=== PATIENT | male | born 1960 | race Caucasian/White ===

== ENCOUNTER 2024-01-27 01:24 | Emergency (ER) | payer OTHER ==
[2024-01-27 01:30] VITALS: BP 119/76; PULSE 62; RESP 18; TEMP 101.5; BMI 25.8
[2024-01-27] MEDS ORDERED: ACETAMINOPHEN 500 MG TABLET (FP) ONE (02:11)
[2024-01-27] MEDS: ACETAMINOPHEN 500 MG TABLET (FP) PO ONE (02:21)
[2024-01-27 12:30] LABS: HIV INTERPRETATION NEGATIVE (NEGATIVE)
== END 2024-01-27 03:25 | disposition home or self-care (01) ==
LOC: JER 01:24
DX: U07.1 COVID-19 (principal); R09.81 Nasal congestion; R05.9 Cough, unspecified; R50.9 Fever, unspecified
CPT/HCPCS: 0241U-QW; 36415; 86803; 87389; 99283-25

== ENCOUNTER 2024-04-15 05:37 | Emergency (ER) | payer OTHER ==
[2024-04-15 05:43] VITALS: BP 124/80; PULSE 97; RESP 20; TEMP 98.2; BMI 26.3
[2024-04-15] MEDS ORDERED: ONDANSETRON 4 MG/2 ML VIAL ONE (05:54)
[2024-04-15] MEDS ORDERED: FAMOTIDINE 20 MG/50 ML IVPB 20 MG/50 ML MG IVPB ONE (05:54)
[2024-04-15] MEDS ORDERED: ACETAMINOPHEN INJECTION 100 ML ONE (05:54)
[2024-04-15] MEDS: SODIUM CHLORIDE 0.9% 500 ML INFUS.BAG IV ONE (06:00)
[2024-04-15] MEDS: ACETAMINOPHEN 1000 MG/100 ML BAG IVPB ONE (06:01)
[2024-04-15] MEDS: ONDANSETRON 4 MG/2 ML VIAL IVPUSH ONE (06:01)
[2024-04-15] MEDS: FAMOTIDINE 20 MG/50 ML IVPB 20 MG/50 ML MG IVPB ONE (06:02)
[2024-04-15 06:33] LABS: HEMOGLOBIN 16.3 GM/dL (11.7-16.9); MCH 30.6 pg (25.7-33.7); MCHC 32.7 g/dl (32.0-35.9); MEAN CELL VOLUME 93.7 fl (80-96); MEAN PLT VOLUME 9.1 fl (7.5-11.1); PLATELET COUNT 162 10^3/uL (134-434); RBC 5.34 M/mm3 (4.00-5.60); RDW 13.5 % (11.9-15.9); WHITE BLOOD COUNT 11.6 K/mm3 (4.0-10.0)
[2024-04-15 06:51] LABS: POTASSIUM 4.1 mmol/L (3.5-5.1)
[2024-04-15 06:54] LABS: CALCIUM 9.2 mg/dL (8.5-10.1)
[2024-04-15 06:55] LABS: BLOOD UREA NITROGEN 36.8 mg/dL (7-18); MAGNESIUM 2.2 mg/dL (1.8-2.4)
[2024-04-15 06:59] LABS: BILIRUBIN,TOTAL 1.4 mg/dL (0.2-1)
[2024-04-15 09:08] LABS: ANISOCYTOSIS 0; MACROCYTOSIS 0
== END 2024-04-15 07:42 | disposition home or self-care (01) ==
LOC: JER 05:37
PROC: 3E033GC Introduction of Other Therapeutic Substance into Peripheral Vein, Percutaneous Approach (ICD-10-PCS; principal; 2024-04-15)
PROC: 3E033NZ Introduction of Analgesics, Hypnotics, Sedatives into Peripheral Vein, Percutaneous Approach (ICD-10-PCS; 2024-04-15)
PROC: 3E033GC Introduction of Other Therapeutic Substance into Peripheral Vein, Percutaneous Approach (ICD-10-PCS; 2024-04-15)
DX: R11.2 Nausea with vomiting, unspecified (principal); R42 Dizziness and giddiness
CPT/HCPCS: 36415; 80053; 83690; 83735; 85025; 99284-25; J0131